=== PATIENT | female | born 1950 ===

== ENCOUNTER → 2020-06-30 | Outpatient (CLI) | payer OTHER | LOC: SJCVCIMAG 08:52 | PROVIDERS: ATTEND Nuclear Medicine Nuclear Cardiology | DX: I70.8 Atherosclerosis of other arteries (principal); I71.4 Abdominal aortic aneurysm, without rupture ==

== ENCOUNTER → 2020-07-08 | Outpatient (CLI) | payer OTHER | LOC: SJCVC 12:08 | PROVIDERS: ATTEND Nuclear Medicine Nuclear Cardiology | DX: I73.9 Peripheral vascular disease, unspecified (principal); I71.4 Abdominal aortic aneurysm, without rupture; I25.10 Atherosclerotic heart disease of native coronary artery without angina pectoris; I10 Essential (primary) hypertension; E78.00 Pure hypercholesterolemia, unspecified; J44.9 Chronic obstructive pulmonary disease, unspecified; E78.5 Hyperlipidemia, unspecified; F17.200 Nicotine dependence, unspecified, uncomplicated; Z79.82 Long term (current) use of aspirin; Z79.899 Other long term (current) drug therapy; Z86.73 Personal history of transient ischemic attack (TIA), and cerebral infarction without residual deficits ==

== ENCOUNTER → 2020-07-16 | Outpatient (CLI) | payer OTHER ==
[~2020-07-16] VITALS: Ht 160 cm; Wt 38.6 kg
[~2020-07-16] MED LIST: AMITRIPTYLINE H25 M3 PO; ASA81BEC PO; CRESTOR40 MG PO; LISINOPRIL2.5 MG PO; NITROSTAT0.4 M1 DISSOLVE; PLAVIX 75 MG TA75 MG PO; SYMBICORT160 MCG/4. INH; TOPROL XL50 MG; WELLBUTRIN XL150 MG PO
[2020-07-16 07:17] LABS: HEMATOCRIT 43.3 % (37.0-47.0); HEMOGLOBIN 14.3 gm/dL (12.0-15.0); MCH 31.3 pg (26.0-34.0); MCV 94.8 fL (80.0-100.0); RBC 4.57 mil/uL (4.20-5.00); RDW 14.5 % (10.5-14.5); WBC 4.2 thou/uL (4.0-11.0)
[2020-07-16 07:22] VITALS: BP 129/110
[2020-07-16 08:20] LABS: CALCIUM 8.8 mg/dL (8.5-10.1); CREATININE 0.9 mg/dL (0.6-1.0)
== END | disposition home or self-care (01) ==
LOC: CATH 06:19
PROVIDERS: ATTEND Nuclear Medicine Nuclear Cardiology
DX: I70.213 Atherosclerosis of native arteries of extremities with intermittent claudication, bilateral legs (principal); I70.1 Atherosclerosis of renal artery; I10 Essential (primary) hypertension; I25.10 Atherosclerotic heart disease of native coronary artery without angina pectoris; I25.2 Old myocardial infarction; E78.00 Pure hypercholesterolemia, unspecified; E78.5 Hyperlipidemia, unspecified; J44.9 Chronic obstructive pulmonary disease, unspecified; K21.9 Gastro-esophageal reflux disease without esophagitis; Z98.890 Other specified postprocedural states; F17.210 Nicotine dependence, cigarettes, uncomplicated; Z79.899 Other long term (current) drug therapy; Z82.49 Family history of ischemic heart disease and other diseases of the circulatory system; Z86.73 Personal history of transient ischemic attack (TIA), and cerebral infarction without residual deficits; Z88.8 Allergy status to other drugs, medicaments and biological substances; Z95.1 Presence of aortocoronary bypass graft